=== PATIENT | female | born 1975 | race Caucasian/White ===

== ENCOUNTER 2017-11-05 19:34 | Emergency (ER) | payer OTHER ==
[~2017-11-05] VITALS: Ht 157.5 cm; Wt 58.0 kg
[2017-11-05 19:41] VITALS: Ht 157.5 cm; Wt 58.0 kg
[2017-11-05 22:09] VITALS: BP 129/86
== END 2017-11-05 22:09 | disposition home or self-care (01) ==
LOC: ED 19:34
DX: S60.212A Contusion of left wrist, initial encounter (principal); E16.2 Hypoglycemia, unspecified; Y04.0XXA Assault by unarmed brawl or fight, initial encounter; Y92.9 Unspecified place or not applicable
CPT/HCPCS: Q0092

== ENCOUNTER 2018-01-27 10:06 | Emergency (ER) | payer OTHER ==
[~2018-01-27] VITALS: Ht 157.5 cm; Wt 53.1 kg
[2018-01-27 10:15] VITALS: BP 109/72; Ht 157.5 cm; Wt 53.1 kg
== END 2018-01-27 11:49 | disposition home or self-care (01) ==
LOC: ED 10:06
DX: G89.29 Other chronic pain (principal); M54.5 Low back pain; Z88.1 Allergy status to other antibiotic agents; Z91.040 Latex allergy status
CPT/HCPCS: J1885

== ENCOUNTER 2018-03-14 15:03 | Emergency (ER) | payer OTHER ==
[~2018-03-14] VITALS: Ht 157.5 cm; Wt 52.2 kg
[2018-03-14 15:15] VITALS: BP 124/87; Ht 157.5 cm; Wt 52.2 kg
== END 2018-03-14 16:36 | disposition home or self-care (01) ==
LOC: ED 15:03
DX: S39.012A Strain of muscle, fascia and tendon of lower back, initial encounter (principal); Z88.1 Allergy status to other antibiotic agents; Z91.040 Latex allergy status; Z88.8 Allergy status to other drugs, medicaments and biological substances; X50.0XXA Overexertion from strenuous movement or load, initial encounter; Y93.89 Activity, other specified; Y92.89 Other specified places as the place of occurrence of the external cause; Y99.8 Other external cause status

== ENCOUNTER 2018-03-24 22:49 | Emergency (ER) | payer OTHER ==
[~2018-03-24] VITALS: Ht 157.5 cm; Wt 54.0 kg
[2018-03-24 22:54] VITALS: Ht 157.5 cm; Wt 54.0 kg
[2018-03-25 01:26] LABS: CALCIUM 8.5 mg/dL (8.5-10.1); CARBON DIOXIDE 27.1 mmol/L (21-32); CHLORIDE SERUM 104 mmol/L (98-107); CREATININE SERUM 0.7 mg/dL (0.6-1.0); GFR1 > 60 mL/min; GLUCOSE SERUM 99 mg/dL (74-106); POTASSIUM SERUM 3.6 mmol/L (3.5-5.1); SODIUM SERUM 140 mmol/L (136-145)
[2018-03-25 01:27] LABS: BASOPHIL % 0.3 % (0-2); PLATELET COUNT 271 x10^3mcL (130-400); RED CELL DISTRIBUTION WIDTH 13.9 % (11.5-14.5)
[2018-03-25 01:32] LABS: ALBUMIN 3.6 g/dL (3.4-5.0); ALKALINE PHOSPHATASE 64 U/L (46-116); ALT/SGPT 15 U/L (14-59); AMYLASE 44 U/L (25-115); AST/SGOT 13 U/L (15-37); BILIRUBIN TOTAL 0.54 mg/dL (0.20-1.00); LIPASE 119 IU/L (73-393); TOTAL PROTEIN, SERUM 7.5 g/dL (6.4-8.2)
[2018-03-25 02:43] VITALS: BP 119/89
== END 2018-03-25 02:43 | disposition home or self-care (01) ==
LOC: ED 22:49
PROVIDERS: Emergency Medicine
DX: R11.2 Nausea with vomiting, unspecified (principal); R19.7 Diarrhea, unspecified
CPT/HCPCS: J1885; J2405

== ENCOUNTER 2018-04-22 17:21 | Emergency (ER) | payer OTHER ==
[~2018-04-22] VITALS: Ht 157.5 cm; Wt 56.7 kg
[2018-04-22 17:32] VITALS: Ht 157.5 cm; Wt 56.7 kg
[2018-04-22 20:20] VITALS: BP 131/96
== END 2018-04-22 20:20 | disposition home or self-care (01) ==
LOC: ED 17:21
DX: S01.91XD Laceration without foreign body of unspecified part of head, subsequent encounter (principal); E16.2 Hypoglycemia, unspecified; Z88.1 Allergy status to other antibiotic agents; Z91.040 Latex allergy status; X58.XXXD Exposure to other specified factors, subsequent encounter
CPT/HCPCS: J2001

== ENCOUNTER 2018-09-07 16:33 | Emergency (ER) | payer OTHER ==
[~2018-09-07] VITALS: Ht 157.5 cm; Wt 60.3 kg
[2018-09-07 16:45] VITALS: Ht 157.5 cm; Wt 60.3 kg
[2018-09-07 19:36] VITALS: BP 120/65
== END 2018-09-07 19:36 | disposition home or self-care (01) ==
LOC: ED 16:33
DX: J02.9 Acute pharyngitis, unspecified (principal); Z88.1 Allergy status to other antibiotic agents; Z91.040 Latex allergy status
CPT/HCPCS: Q0092

== ENCOUNTER 2018-11-21 17:16 | Emergency (ER) | payer OTHER ==
[~2018-11-21] VITALS: Ht 157.5 cm; Wt 62.3 kg
[2018-11-21 17:26] VITALS: Ht 157.5 cm; Wt 62.3 kg
[2018-11-21 19:29] VITALS: BP 129/101
== END 2018-11-21 19:29 | disposition home or self-care (01) ==
LOC: ED 17:16
DX: S63.615A Unspecified sprain of left ring finger, initial encounter (principal); W20.8XXA Other cause of strike by thrown, projected or falling object, initial encounter; Y93.89 Activity, other specified; Y92.89 Other specified places as the place of occurrence of the external cause; Y99.8 Other external cause status